=== PATIENT | male | born 1990 | race Two or more races ===

== ENCOUNTER 2022-10-03 11:35 | Emergency (ER) | payer OTHER ==
[~2022-10-03] VITALS: Ht 172.7 cm; Wt 67.3 kg
[2022-10-03] MEDS ORDERED: TETRAcaine 5 ML BOTTLE EACHEYE ONE (12:30)
[2022-10-03] MEDS ORDERED: FLUORESCEIN SODIUM OPHTH 1 EA STRIP OP ONE (12:30)
[2022-10-03] MEDS ORDERED: FLUORESCEIN SODIUM OPHTH 1 EA STRIP ONE (12:59)
--- NOTE | 2022-10-03 13:04 | NUR ---
PT MEDS GIVEN TO DR AMAYA WITH QTIPS
[2022-10-03] MEDS ORDERED: POLY10DR3 RIGHTEYE (13:28)
--- NOTE | 2022-10-03 13:34 | NUR ---
Patient discharged to home in stable condition. Written and verbal after care instructions given. Patient verbalizes understanding of instruction.
[2022-10-03 13:35] VITALS: BP 122/73
== END 2022-10-03 13:35 | disposition home or self-care (01) ==
LOC: ER 11:41
DX: T15.01XA Foreign body in cornea, right eye, initial encounter (principal); Z79.899 Other long term (current) drug therapy; X58.XXXA Exposure to other specified factors, initial encounter; Y93.89 Activity, other specified; Y92.89 Other specified places as the place of occurrence of the external cause; Y99.8 Other external cause status

== ENCOUNTER 2023-09-13 11:11 | Emergency (ER) | payer OTHER ==
[~2023-09-13] VITALS: Ht 177.8 cm; Wt 68.5 kg
[~2023-09-13 11:11] MED LIST: POLY10DR3 RIGHTEYE
[2023-09-13] MEDS ORDERED: IBUP-1957 PO (11:24)
[2023-09-13 11:26] VITALS: TEMP 98.4
[2023-09-13 11:30] VITALS: BP 118/66; O2SAT 99
== END 2023-09-13 11:30 | disposition home or self-care (01) ==
LOC: ER 11:11
DX: S83.242A Other tear of medial meniscus, current injury, left knee, initial encounter (principal); Z79.899 Other long term (current) drug therapy; Z60.2 Problems related to living alone; X50.1XXA Overexertion from prolonged static or awkward postures, initial encounter; Y93.89 Activity, other specified; Y92.89 Other specified places as the place of occurrence of the external cause; Y99.8 Other external cause status

== ENCOUNTER 2024-10-15 22:44 | Emergency (ER) | payer OTHER ==
[~2024-10-15] VITALS: Ht 177.8 cm; Wt 70.3 kg
[~2024-10-15 22:44] MED LIST changes: +IBUP-1957 PO
[2024-10-15 23:35] VITALS: BP 130/76; TEMP 97.8; O2SAT 98
[2024-10-16] MEDS ORDERED: CYCL5TAB PO (00:41)
== END 2024-10-16 00:57 | disposition home or self-care (01) ==
LOC: EDUNIT# 22:44 → ER 22:53
DX: S83.412A Sprain of medial collateral ligament of left knee, initial encounter (principal); R10.11 Right upper quadrant pain; Z79.1 Long term (current) use of non-steroidal anti-inflammatories (NSAID); Z60.2 Problems related to living alone; X58.XXXA Exposure to other specified factors, initial encounter; Y93.66 Activity, soccer; Y92.89 Other specified places as the place of occurrence of the external cause; Y99.8 Other external cause status